=== PATIENT | male | born 1945 | race Caucasian/White ===

== ENCOUNTER 2018-11-17 09:37 | Outpatient (CLI) | payer MEDICARE ==
[2018-11-17] VITALS (16 sets, daily range): BP systolic 82–127; BP diastolic 53–77
== END 2018-11-17 23:59 | disposition home or self-care (01) ==
LOC: CARD DIAG 09:37
PROVIDERS: ATTEND Internal Medicine Cardiovascular Disease
DX: R42 Dizziness and giddiness (principal)
CPT/HCPCS: 93660

== ENCOUNTER 2019-01-20 06:53 | Outpatient (CLI) | payer MEDICARE ==
[2019-01-20] MEDS ORDERED: albuterol 2.5 MG/3 ML nebule NEB ONE (07:40)
== END 2019-01-20 23:59 | disposition home or self-care (01) ==
LOC: RT 06:53
PROVIDERS: ATTEND Family Medicine
DX: J44.9 Chronic obstructive pulmonary disease, unspecified (principal); I48.20 Chronic atrial fibrillation, unspecified; Z79.899 Other long term (current) drug therapy; Z91.89 Other specified personal risk factors, not elsewhere classified; Z87.891 Personal history of nicotine dependence
CPT/HCPCS: 94060; 94729; 94760

== ENCOUNTER 2019-03-31 11:48 | Day surgery (SDC) | payer MEDICARE ==
[2019-03-30 09:56] LABS: BASOPHILS # (AUTO) 0.1 X10'3 (0-0.2); BASOPHILS % (AUTO) 1.3 % (0-1); EOSINOPHILS # (AUTO) 0.4 X10'3 (0-0.9); EOSINOPHILS % (AUTO) 6.9 % (0-6); HEMATOCRIT 43.1 % (42.0-52.0); HEMOGLOBIN 14.5 g/dl (14.0-17.9); LYMPHOCYTES # (AUTO) 1.4 X10'3 (1.1-4.8); LYMPHOCYTES % (AUTO) 24.6 % (21-51); MEAN CORPUSCULAR HEMOGLOBIN 30.4 PG (27.0-31.0); MEAN CORPUSCULAR HGB CONC 33.6 g/dL (33.0-36.5); MEAN CORPUSCULAR VOLUME 90.6 FL (78-98); MONOCYTES # (AUTO) 0.6 X10'3 (0-0.9); MONOCYTES % (AUTO) 10.8 % (2-12); NEUTROPHILS # (AUTO) 3.3 X10'3 (1.8-7.7); NEUTROPHILS % (AUTO) 56.4 % (42-75); PLATELET COUNT 169 X10'3 (140-440); RED BLOOD COUNT 4.76 X10'6 (4.70-6.10); RED CELL DISTRIBUTION WIDTH 14.4 % (11.5-14.5); WHITE BLOOD COUNT 5.8 X10'3 (4.5-11.0)
[2019-03-30 10:08] LABS: PARTIAL THROMBOPLASTIN TIME 25 SECONDS (22-32)
[2019-03-30 10:10] LABS: ALANINE AMINOTRANSFERASE 50 U/L (12-78); ALBUMIN 3.5 G/DL (3.4-5.0); ALBUMIN/GLOBULIN RATIO 0.9 (1.1-1.5); ALKALINE PHOSPHATASE 81 IU/L (46-116); ANION GAP 7 (8-16); ASPARTATE AMINO TRANSFERASE 30 U/L (10-37); BILIRUBIN,TOTAL 0.6 MG/DL (0.1-1.0); BLOOD UREA NITROGEN 20 MG/DL (7-18); BUN/CREATININE RATIO 13.7 (5.4-32.0); CALCIUM 8.9 MG/DL (8.5-10.1); CHLORIDE 106 MMOL/L (99-107); CHOL/HDL RATIO 2.1 (0.00-4.99); CHOLESTEROL 130 MG/DL (0-200); CREATININE 1.46 MG/DL (0.60-1.10); GLUCOSE 118 MG/DL (70-104); HDL CHOLESTEROL 61 MG/DL (35-60); LDL CHOLESTEROL 56 MG/DL (50-100); POTASSIUM 4.4 MMOL/L (3.5-5.1); SODIUM 141 MMOL/L (135-145); TOTAL CARBON DIOXIDE 27.7 MMOL/L (24-32); TOTAL PROTEIN 7.3 G/DL (6.4-8.2); TRIGLYCERIDES 90 MG/DL (20-135); eGFR 47 ML/MIN
[2019-03-31] VITALS (10 sets, daily range): BP systolic 100–132; BP diastolic 53–69
[~2019-03-31] VITALS: Ht 188 cm; Wt 127.1 kg
[2019-03-31] MEDS ORDERED: ceFAZolin 1GM/D5W- ADD-VANTAGE 50 ML IV ONE (12:15)
[2019-03-31] MEDS ORDERED: ceFAZolin 2gm in dextrose, iso 50 ML IV ONE (12:15)
[2019-03-31] MEDS ORDERED: lipitor PO (12:21)
[2019-03-31] MEDS ORDERED: AMIO200T61 PO (12:25)
[2019-03-31] MEDS ORDERED: METO25TA6 PO (12:25)
[2019-03-31] MEDS ORDERED: POTA10CA44 PO (12:25)
[2019-03-31] MEDS ORDERED: ASPI-1053 PO (12:25)
[2019-03-31] MEDS ORDERED: FURO-150 PO (12:25)
[2019-03-31] MEDS ORDERED: LOSA25TA96 PO (12:25)
[2019-03-31] MEDS ORDERED: proventil (12:26)
[2019-03-31] MEDS ORDERED: fentaNYL/PF 50MCG/1 ML 2ML syringe ONE (15:02)
[2019-03-31] MEDS ORDERED: midazolam 2 mg/2 ml injection ONE (15:02)
[2019-03-31] MEDS ORDERED: LIDOcaine 1% W/epiNEPHrine 1:100,000 20ml vial ONE (15:03)
[2019-03-31] MEDS ORDERED: ceFAZolin 1000mg inj ONE (15:03)
[2019-03-31] MEDS ORDERED: HYDROcodone/acetaminophen 10/325mg tab PO PRN (17:00)
[2019-03-31] MEDS ORDERED: HYDROcodone/acetaminophen 5mg/325mg tablet PO PRN (17:00)
[2019-03-31] MEDS ORDERED: vancomycin/NS 1 GM ADD-VANTAGE 250 ML IV ONE (17:30)
== END 2019-03-31 20:30 | disposition home or self-care (01) ==
LOC: SSTAY O 11:48
PROVIDERS: ATTEND Internal Medicine Cardiovascular Disease
DX: Z45.02 Encounter for adjustment and management of automatic implantable cardiac defibrillator (principal); I10 Essential (primary) hypertension; I25.10 Atherosclerotic heart disease of native coronary artery without angina pectoris; I47.2 Ventricular tachycardia; Z95.5 Presence of coronary angioplasty implant and graft; R53.83 Other fatigue; R06.02 Shortness of breath; E78.5 Hyperlipidemia, unspecified; I42.0 Dilated cardiomyopathy; J44.9 Chronic obstructive pulmonary disease, unspecified; Z98.890 Other specified postprocedural states; Z79.899 Other long term (current) drug therapy; Z79.82 Long term (current) use of aspirin
CPT/HCPCS: 33263; 36415; 80053; 80061; 85025; 85610; 85730; 93005; C1721; C1894; J0690; J2250; J3010; J3370; 33228; 99152; 99153; A4565; A4620; A6449

== ENCOUNTER 2020-12-04 16:28 | Emergency (ER) | payer MEDICARE ==
[~2020-12-04] VITALS: Ht 188 cm; Wt 59.3 kg
[~2020-12-04 16:28] MED LIST: AMIO200T61 PO; ASPI-1053 PO; FURO-150 PO; LOP25T PO; LOSA25TA96 PO; POTA10CA44 PO; lipitor PO; proventil
[2020-12-04 16:42] VITALS: BP 107/57
[2020-12-04 17:14] LABS: BASOPHILS # (AUTO) 0.1 X10'3 (0-0.2); BASOPHILS % (AUTO) 1.7 % (0-1); EOSINOPHILS # (AUTO) 0.2 X10'3 (0-0.9); HEMATOCRIT 24.1 % (42.0-52.0); HEMOGLOBIN 7.1 g/dl (14.0-17.9); LYMPHOCYTES # (AUTO) 0.9 X10'3 (1.1-4.8); LYMPHOCYTES % (AUTO) 17.9 % (21-51); MEAN CORPUSCULAR HEMOGLOBIN 19.1 PG (27.0-31.0); MEAN CORPUSCULAR HGB CONC 29.5 g/dL (33.0-36.5); MEAN CORPUSCULAR VOLUME 64.8 FL (78-98); MEAN PLATELET VOLUME 6.8 FL (7.4-10.4); MONOCYTES # (AUTO) 0.6 X10'3 (0-0.9); MONOCYTES % (AUTO) 11.2 % (2-12); NEUTROPHILS # (AUTO) 3.5 X10'3 (1.8-7.7); NEUTROPHILS % (AUTO) 66.2 % (42-75); PLATELET COUNT 240 X10'3 (140-440); RED BLOOD COUNT 3.72 X10'6 (4.70-6.10); RED CELL DISTRIBUTION WIDTH 19.8 % (11.5-14.5); WHITE BLOOD COUNT 5.3 X10'3 (4.5-11.0)
[2020-12-04 17:22] LABS: ALANINE AMINOTRANSFERASE 29 U/L (12-78); ALBUMIN 3.3 G/DL (3.4-5.0); ALBUMIN/GLOBULIN RATIO 0.8 (1.1-1.5); ALKALINE PHOSPHATASE 92 IU/L (46-116); ANION GAP 7 (8-16); ASPARTATE AMINO TRANSFERASE 19 U/L (10-37); BLOOD UREA NITROGEN 29 MG/DL (7-18); CALCIUM 8.5 MG/DL (8.5-10.1); CHLORIDE 107 MMOL/L (99-107); CREATININE 1.61 MG/DL (0.60-1.10); GLUCOSE 125 MG/DL (70-104); POTASSIUM 4.8 MMOL/L (3.5-5.1); SODIUM 142 MMOL/L (135-145); TOTAL CARBON DIOXIDE 28.1 MMOL/L (24-32); TOTAL PROTEIN 7.2 G/DL (6.4-8.2); eGFR 42 ML/MIN
[2020-12-04 17:58] LABS: ANISOCYTOSIS 2+; BURR CELLS FEW; ELLIPTOCYTES 1+; MICROCYTOSIS 2+; PLATELET ESTIMATE NORMAL; POIKILOCYTOSIS 1+; POLYCHROMASIA FEW; SCHISTOCYTES 1+; TEAR DROP CELLS 1+
[2020-12-04 17:59] LABS: HYPOCHROMASIA 2+
[2020-12-06] MEDS ORDERED: ATOR40TA72 PO (08:31)
[2020-12-06] MEDS ORDERED: MECO10005 (08:31)
[2020-12-06] MEDS ORDERED: FURO20TA4 PO (08:31)
[2020-12-06] MEDS ORDERED: ASPI-1264 PO (08:31)
[2020-12-06] MEDS ORDERED: POTA10TA PO (08:31)
[2020-12-06] MEDS ORDERED: UBID30CA11 PO (08:35)
[2020-12-06] MEDS ORDERED: CHOL10008 PO (08:35)
[2020-12-06] MEDS ORDERED: MELA10CA2 PO (08:35)
[2020-12-06] MEDS ORDERED: ALBU8.5H17 IH (10:57)
[2020-12-06] MEDS ORDERED: UBID1CAP54 PO (10:58)
[2020-12-06] MEDS ORDERED: METO-395 PO (13:04)
== END 2020-12-04 20:05 | disposition left against medical advice (07) ==
LOC: ER 16:29
DX: R10.13 Epigastric pain (principal); R06.02 Shortness of breath; R53.1 Weakness; I95.9 Hypotension, unspecified; Z79.82 Long term (current) use of aspirin; Z95.0 Presence of cardiac pacemaker
CPT/HCPCS: 36415; 71045; 80053; 85008; 85025; 85610; 86885; 86900; 86901; 93005; 99285

== ENCOUNTER 2020-12-19 14:06 | Outpatient (CLI) | payer MEDICARE ==
[~2020-12-19 14:06] MED LIST changes: +ALBU8.5H17 IH; -ASPI-1053 PO; +ASPI-1264 PO; +ATOR40TA72 PO; +CHOL10008 PO; -LOP25T PO; +MECO10005; +MELA10CA2 PO; +METO-395 PO; -POTA10CA44 PO; +POTA10TA PO; +UBID1CAP54 PO; -lipitor PO; -proventil
[2020-12-19 15:15] LABS: BASOPHILS # (AUTO) 0.1 X10'3 (0-0.2); BASOPHILS % (AUTO) 1.5 % (0-1); EOSINOPHILS # (AUTO) 0.3 X10'3 (0-0.9); EOSINOPHILS % (AUTO) 6.6 % (0-6); HEMATOCRIT 29.1 % (42.0-52.0); HEMOGLOBIN 8.8 g/dl (14.0-17.9); LYMPHOCYTES # (AUTO) 0.9 X10'3 (1.1-4.8); LYMPHOCYTES % (AUTO) 19.9 % (21-51); MEAN CORPUSCULAR HEMOGLOBIN 20.9 PG (27.0-31.0); MEAN CORPUSCULAR HGB CONC 30.2 g/dL (33.0-36.5); MEAN PLATELET VOLUME 8.2 FL (7.4-10.4); MONOCYTES # (AUTO) 0.5 X10'3 (0-0.9); MONOCYTES % (AUTO) 11.5 % (2-12); NEUTROPHILS # (AUTO) 2.6 X10'3 (1.8-7.7); NEUTROPHILS % (AUTO) 60.5 % (42-75); PLATELET COUNT 222 X10'3 (140-440); RED BLOOD COUNT 4.22 X10'6 (4.70-6.10); RED CELL DISTRIBUTION WIDTH 25.2 % (11.5-14.5); WHITE BLOOD COUNT 4.3 X10'3 (4.5-11.0)
[2020-12-19 15:22] LABS: ALBUMIN 3.2 G/DL (3.4-5.0); ANION GAP 7 (8-16); BLOOD UREA NITROGEN 18 MG/DL (7-18); BUN/CREATININE RATIO 11.8 (5.4-32.0); CALCIUM 8.5 MG/DL (8.5-10.1); CHLORIDE 104 MMOL/L (99-107); CREATININE 1.53 MG/DL (0.60-1.10); GLUCOSE 109 MG/DL (70-104); POTASSIUM 4.2 MMOL/L (3.5-5.1); SODIUM 142 MMOL/L (135-145); TOTAL CARBON DIOXIDE 31.5 MMOL/L (24-32); eGFR 44 ML/MIN
[2020-12-19 16:48] LABS: ANISOCYTOSIS 3+; ELLIPTOCYTES 1+; MICROCYTOSIS 2+; PLATELET ESTIMATE NORMAL
[2020-12-19 16:49] LABS: HYPOCHROMASIA 1+; SCHISTOCYTES 1+; TEAR DROP CELLS FEW
[2020-12-19 16:50] LABS: ACANTHOCYTES FEW; POLYCHROMASIA 1+
== END 2020-12-19 23:59 | disposition home or self-care (01) ==
LOC: LAB 14:06
PROVIDERS: ATTEND Internal Medicine Cardiovascular Disease
DX: I50.22 Chronic systolic (congestive) heart failure (principal); R06.02 Shortness of breath; D64.9 Anemia, unspecified
CPT/HCPCS: 80048; 83880; 85008; 85025

== ENCOUNTER 2021-01-25 08:37 | Day surgery (SDC) | payer MEDICARE ==
[~2021-01-25] VITALS: Ht 182.9 cm; Wt 117.2 kg
[2021-01-25 08:50] VITALS: BP 109/65
[2021-01-25] MEDS ORDERED: fentaNYL/PF 50MCG/1 ML 2ML syringe ONE (08:51)
[2021-01-25] MEDS ORDERED: LIDOcaine Viscous 15ml cup ONE (08:51)
[2021-01-25] MEDS ORDERED: MIDAZolam 1 MG/ML 5ML VIAL ONE (08:51)
[2021-01-25] MEDS ORDERED: FURO-150 PO (09:15)
[2021-01-25] MEDS ORDERED: FERR-29 PO (09:17)
[2021-01-25 10:49] VITALS: BP 95/49
[2021-01-25 10:59] VITALS: BP 97/55
[2021-01-25 11:09] VITALS: BP 96/56
[2021-01-25 11:19] VITALS: BP 97/55
== END 2021-01-25 12:05 | disposition home or self-care (01) ==
LOC: GI LAB 08:37
PROVIDERS: ATTEND Internal Medicine Gastroenterology
DX: K31.811 Angiodysplasia of stomach and duodenum with bleeding (principal); D50.0 Iron deficiency anemia secondary to blood loss (chronic); E66.9 Obesity, unspecified; Z68.35 Body mass index [BMI] 35.0-35.9, adult; Z87.891 Personal history of nicotine dependence; Z79.82 Long term (current) use of aspirin; Z95.810 Presence of automatic (implantable) cardiac defibrillator
CPT/HCPCS: 43255; 93005; G0500; J2250; J3010; J7040; Z7512; 43227; 99152; A4620

== ENCOUNTER 2022-05-13 11:54 | Emergency (ER) | payer MEDICARE ==
[~2022-05-13] VITALS: Ht 182.9 cm; Wt 120.0 kg
[~2022-05-13 11:54] MED LIST changes: +FERR-29 PO; -LOSA25TA96 PO
[2022-05-13] MEDS ORDERED: bacitracin 15gm ointment TP ONE (14:35)
--- NOTE | 2022-05-13 15:20 | NUR ---
wound clean and dressing applied. zeroform and gauze
[2022-05-13 15:27] VITALS: BP 138/67
== END 2022-05-13 15:29 | disposition home or self-care (01) ==
LOC: ER 11:56
DX: S51.812A Laceration without foreign body of left forearm, initial encounter (principal); S00.81XA Abrasion of other part of head, initial encounter; S09.90XA Unspecified injury of head, initial encounter; V86.99XA Unspecified occupant of other special all-terrain or other off-road motor vehicle injured in nontraffic accident, initial encounter; Y93.89 Activity, other specified; Y92.89 Other specified places as the place of occurrence of the external cause; Y99.9 Unspecified external cause status
CPT/HCPCS: 70450; 73090; 99284